=== PATIENT | male | born 1945 | race Caucasian/White ===

== ENCOUNTER → 2016-08-02 | Outpatient (REF) ==
[~2016-08-02] MED LIST: ATIVAN 0.50.5 MG/TAB PO; BUSPAR DIVIDOSE15 MG PO; BUSPAR10 MG PO; CALCIUM CITRAT200 MG; CARAFATE 1GM1 G PO; CIPRO 500MG TA500 MG PO; FERROUS SU325 MG/TAB PO; FLAGYL500 MG PO; FLOMAX 0.40.4 MG/CAP PO; FOSAMAX 70MG TA70 MG; HCTZ 25MG25 MG PO; K-TAB20 PO; LASIX 40MG TABL40 MG PO; LIDODERM PATCH TP; LISINOPRIL/HCTZ1 TA2 PO; LOPRESSOR 550 MG/TAB PO; LORTAB 7.5/5001 TAB PO; LOVASTATIN40 MG PO; MAG-OX 400400 MG/TAB PO; METAMUCIL MUL0.52 GM PO; MIDAMOR 5MG TAB5 MG PO; PHENERGAN 25 TA25 MG PO; PHENERGAN25 MG RC; PREDFORTE5ML OD; PRILOSEC 20MG20 MG PO; PRINIVIL40 MG; PROTONIX 40MG T40 MG PO; TYLENOL 500MG500 MG PO; VASOTEC10 MG PO; ZOCOR 10MG10 MG PO; ZOFRAN ODT4 MG PO; ZOFRAN8 MG PO
[2016-08-02 14:07] LABS: THYROID STIMULATING HORMONE 1.21 uIU/mL (0.465-4.680)
[2016-08-02 14:11] LABS: PSA-TOTAL 0.58 ng/mL (0-4)
== END ==
LOC: ZLAB.WCH 13:00
PROVIDERS: Medical Genetics Clinical Genetics (M.D.)
DX: Z01.89 Encounter for other specified special examinations (principal)
CPT/HCPCS: G0103

== ENCOUNTER 2017-01-12 18:07 | Emergency (ER) | payer MEDICARE, OTHER ==
[~2017-01-12] VITALS: Ht 172.7 cm; Wt 72.7 kg
[~2017-01-12 18:07] MED LIST changes: -ATIVAN 0.50.5 MG/TAB PO; -CIPRO 500MG TA500 MG PO; -FERROUS SU325 MG/TAB PO; -FLAGYL500 MG PO; -FLOMAX 0.40.4 MG/CAP PO; -K-TAB20 PO; -LASIX 40MG TABL40 MG PO; -MAG-OX 400400 MG/TAB PO; -MIDAMOR 5MG TAB5 MG PO; -PREDFORTE5ML OD; -PRINIVIL40 MG; -PROTONIX 40MG T40 MG PO; -TYLENOL 500MG500 MG PO; -ZOFRAN ODT4 MG PO; -ZOFRAN8 MG PO
[2017-01-12 18:12] VITALS: TEMP 98.9
[2017-01-12 19:03] LABS: BASO % 0.3 % (0.0-2.0); EOS % 0.1 % (0-4.0); GRAN # 9.9 (1.4-6.5); GRAN % 89.4 % (42.2-75.2); HEMATOCRIT 47.1 % (42.0-52.0); HEMOGLOBIN 15.7 g/dl (13.5-18.0); LYMPH # 0.4 (1.2-3.4); LYMPH % 3.6 % (20.0-51.0); MEAN CELL VOLUME 90 fl (80.0-100.0); MEAN CORPUSCULAR HEMOGLOBIN 30 pg (27.0-31.0); MEAN CORPUSCULAR HGB CONC 33 g/dl (33.0-37.0); MONO # 0.7 (0.1-0.6); MONO % 6.2 % (1.7-9.3); PLATELET COUNT 169 K/mm3 (130-400); RED BLOOD COUNT 5.24 M/mm3 (4.20-5.60); REDCELL DISTRIBUTION WIDTH-CV 13.2 % (11.5-14.5); WHITE BLOOD COUNT 11.1 K/mm3 (4.8-10.8)
[2017-01-12 19:15] LABS: ALBUMIN 4.2 gm/dL (3.5-5.0); BILIRUBIN,TOTAL 0.8 mg/dL (0.0-1.0); C-REACTIVE PROTEIN 1.5 mg/dL (0.0-0.9); CALCIUM 9.2 mg/dL (8.4-10.2); CREATININE, serum 0.88 mg/dL (0.66-1.25); POTASSIUM 3.9 mmol/L (3.4-5.0); TOTAL PROTEIN 7.6 gm/dL (6.4-8.2)
[2017-01-12] MEDS ORDERED: PRINIVIL40 MG (19:16)
[2017-01-12] MEDS ORDERED: ZOFRAN ODT4 MG PO (20:55)
[2017-01-12] MEDS ORDERED: CIPRO 500MG TA500 MG PO (20:55)
[2017-01-12] MEDS ORDERED: FLAGYL500 MG PO (20:55)
[2017-01-12 21:15] VITALS: BP 127/84; PULSE 80
[2017-01-13] MEDS ORDERED: TYLENOL 500MG500 MG PO (07:48)
[2017-01-13] MEDS ORDERED: ATIVAN 0.50.5 MG/TAB PO (07:48)
== END 2017-01-12 21:26 | disposition home or self-care (01) ==
LOC: COL.ER 18:07
PROVIDERS: Emergency Medicine
DX: K52.9 Noninfective gastroenteritis and colitis, unspecified (principal); I10 Essential (primary) hypertension
CPT/HCPCS: J1885; J2060; J7030; Q9967

== ENCOUNTER 2017-01-13 04:57 | Inpatient (IN) | payer MEDICARE, OTHER ==
[~2017-01-13] VITALS: Ht 172.7 cm; Wt 82.1 kg
[~2017-01-13 04:57] MED LIST changes: +CIPRO 500MG TA500 MG PO; +FLAGYL500 MG PO; +PRINIVIL40 MG; +ZOFRAN ODT4 MG PO
[2017-01-13 05:43] LABS: BASO % 0.3 % (0.0-2.0); GRAN # 11.9 (1.4-6.5); GRAN % 86.4 % (42.2-75.2); HEMATOCRIT 47.9 % (42.0-52.0); LYMPH # 0.7 (1.2-3.4); LYMPH % 4.9 % (20.0-51.0); MEAN CELL VOLUME 89 fl (80.0-100.0); MEAN CORPUSCULAR HEMOGLOBIN 30 pg (27.0-31.0); MEAN CORPUSCULAR HGB CONC 33 g/dl (33.0-37.0); MEAN PLATELET VOLUME 9.1 fl (7.4-10.4); MONO # 1.1 (0.1-0.6); MONO % 7.9 % (1.7-9.3); PLATELET COUNT 154 K/mm3 (130-400); RED BLOOD COUNT 5.38 M/mm3 (4.20-5.60); REDCELL DISTRIBUTION WIDTH-CV 13.3 % (11.5-14.5); WHITE BLOOD COUNT 13.8 K/mm3 (4.8-10.8)
[2017-01-13 05:48] LABS: INR 1.1 (0.8-3.0); PROTHROMBIN TIME 11.8 SECONDS (9.7-12.8)
[2017-01-13 05:51] LABS: PARTIAL THROMBOPLASTIN TIME 27.7 SECONDS (26.0-37.0)
[2017-01-13 05:53] LABS: ADJUSTED CALCIUM 8.6 mg/dL (8.4-10.2); BILIRUBIN,TOTAL 0.9 mg/dL (0.0-1.0); CALCIUM 8.6 mg/dL (8.4-10.2); CREATININE, serum 0.76 mg/dL (0.66-1.25); MAGNESIUM 1.9 mg/dL (1.6-2.3); POTASSIUM 3.6 mmol/L (3.4-5.0); TOTAL PROTEIN 7.2 gm/dL (6.4-8.2)
[2017-01-13] MEDS ORDERED: ATIVAN 0.50.5 MG/TAB PO (07:48)
[2017-01-13] MEDS ORDERED: TYLENOL 500MG500 MG PO (07:48)
[2017-01-13 09:57] VITALS: BP 164/82; PULSE 75; TEMP 97.4
[2017-01-13 11:33] VITALS: BP 134/74; PULSE 76; TEMP 98
[2017-01-13 15:53] VITALS: BP 176/93; PULSE 103; TEMP 97.7
[2017-01-13 17:19] LABS: HEMATOCRIT 50.5 % (42.0-52.0); HEMOGLOBIN 16.9 g/dl (13.5-18.0)
[2017-01-13 19:43] VITALS: BP 163/94; PULSE 98; TEMP 98.1
[2017-01-13 22:59] LABS: HEMATOCRIT 49.5 % (42.0-52.0); HEMOGLOBIN 16.8 g/dl (13.5-18.0)
[2017-01-13 23:41] VITALS: BP 138/77; PULSE 97; TEMP 97.8
[2017-01-14 03:22] VITALS: BP 108/62; PULSE 99; TEMP 98.1
[2017-01-14 06:54] LABS: HEMATOCRIT 48.2 % (42.0-52.0); MEAN CELL VOLUME 89 fl (80.0-100.0); MEAN CORPUSCULAR HEMOGLOBIN 30 pg (27.0-31.0); MEAN CORPUSCULAR HGB CONC 33 g/dl (33.0-37.0); MEAN PLATELET VOLUME 9.3 fl (7.4-10.4); PLATELET COUNT 164 K/mm3 (130-400); REDCELL DISTRIBUTION WIDTH-CV 13.7 % (11.5-14.5); WHITE BLOOD COUNT 15.8 K/mm3 (4.8-10.8)
[2017-01-14 06:56] LABS: ADD PATHOLOGY DIFF REVIEW NO
[2017-01-14 06:58] LABS: CALCIUM 7.6 mg/dL (8.4-10.2); CREATININE, serum 0.83 mg/dL (0.66-1.25); POTASSIUM 3.9 mmol/L (3.4-5.0)
[2017-01-14 07:24] VITALS: BP 140/77; PULSE 88; TEMP 97.5
[2017-01-14 07:35] LABS: BAND 18 % (0-10); MYELOCYTE 2 % (0-0); NEUTROPHILS 74 % (42.0-75.2); PLATELET ESTIMATE NORMAL (NORMAL); TOTAL CELLS COUNTED 100
[2017-01-14 11:31] VITALS: BP 126/75; PULSE 81; TEMP 97.5
[2017-01-14 15:50] VITALS: BP 131/66; PULSE 54; TEMP 98
[2017-01-14 19:50] VITALS: BP 127/64; PULSE 95; TEMP 97.3
[2017-01-15] VITALS (7 sets, daily range): BP systolic 124–153; BP diastolic 64–80; PULSE 61–107; TEMP 97.5–99
[2017-01-15 10:09] LABS: HEMATOCRIT 42.4 % (42.0-52.0); MEAN CELL VOLUME 92 fl (80.0-100.0); MEAN CORPUSCULAR HEMOGLOBIN 30 pg (27.0-31.0); MEAN CORPUSCULAR HGB CONC 33 g/dl (33.0-37.0); MEAN PLATELET VOLUME 9.1 fl (7.4-10.4); PLATELET COUNT 153 K/mm3 (130-400); RED BLOOD COUNT 4.63 M/mm3 (4.20-5.60); REDCELL DISTRIBUTION WIDTH-CV 14.4 % (11.5-14.5); WHITE BLOOD COUNT 15.5 K/mm3 (4.8-10.8)
[2017-01-15 10:10] LABS: HEMOGLOBIN 13.9 g/dl (13.5-18.0)
[2017-01-15 10:11] LABS: ADD PATHOLOGY DIFF REVIEW NO
[2017-01-15 10:46] LABS: BAND 16 % (0-10); METAMYELOCYTE 4 % (0-0); MYELOCYTE 2 % (0-0); NEUTROPHILS 70 % (42.0-75.2); PLATELET ESTIMATE NORMAL (NORMAL); TOTAL CELLS COUNTED 100
[2017-01-15 17:38] LABS: ADJUSTED CALCIUM 8.8 mg/dL (8.4-10.2); ALBUMIN 3.1 gm/dL (3.5-5.0); BILIRUBIN,TOTAL 0.7 mg/dL (0.0-1.0); CALCIUM 8.1 mg/dL (8.4-10.2); CREATININE, serum 0.96 mg/dL (0.66-1.25); POTASSIUM 3.8 mmol/L (3.4-5.0); TOTAL PROTEIN 5.9 gm/dL (6.4-8.2)
[2017-01-16 03:26] VITALS: BP 142/73; PULSE 101; TEMP 98.2
[2017-01-16 07:48] VITALS: BP 153/69; PULSE 99; TEMP 97.9
[2017-01-16 11:45] VITALS: BP 152/80; PULSE 96
[2017-01-16 12:20] LABS: HEMOGLOBIN 13.5 g/dl (13.5-18.0); MEAN CELL VOLUME 92 fl (80.0-100.0); MEAN CORPUSCULAR HEMOGLOBIN 30 pg (27.0-31.0); MEAN CORPUSCULAR HGB CONC 33 g/dl (33.0-37.0); MEAN PLATELET VOLUME 9.4 fl (7.4-10.4); PLATELET COUNT 106 K/mm3 (130-400); RED BLOOD COUNT 4.46 M/mm3 (4.20-5.60); REDCELL DISTRIBUTION WIDTH-CV 14.5 % (11.5-14.5); WHITE BLOOD COUNT 15.3 K/mm3 (4.8-10.8)
[2017-01-16 12:37] LABS: ADJUSTED CALCIUM 8.9 mg/dL (8.4-10.2); ALBUMIN 2.6 gm/dL (3.5-5.0); CALCIUM 7.8 mg/dL (8.4-10.2); CREATININE, serum 0.88 mg/dL (0.66-1.25); POTASSIUM 3.7 mmol/L (3.4-5.0); TOTAL PROTEIN 5.2 gm/dL (6.4-8.2)
[2017-01-16 16:01] VITALS: BP 164/86; PULSE 92; TEMP 99.3
[2017-01-16 19:52] VITALS: BP 149/81; PULSE 97; TEMP 97.8
[2017-01-16 23:10] VITALS: BP 143/77; PULSE 101; TEMP 99.1
[2017-01-17 02:50] VITALS: BP 148/80; PULSE 96; TEMP 98.9
[2017-01-17 07:29] LABS: HEMATOCRIT 42.4 % (42.0-52.0); MEAN CELL VOLUME 91 fl (80.0-100.0); MEAN CORPUSCULAR HEMOGLOBIN 30 pg (27.0-31.0); MEAN CORPUSCULAR HGB CONC 33 g/dl (33.0-37.0); MEAN PLATELET VOLUME 9.8 fl (7.4-10.4); PLATELET COUNT 58 K/mm3 (130-400); RED BLOOD COUNT 4.67 M/mm3 (4.20-5.60); REDCELL DISTRIBUTION WIDTH-CV 14.6 % (11.5-14.5); WHITE BLOOD COUNT 15.1 K/mm3 (4.8-10.8)
[2017-01-17 07:36] LABS: ALBUMIN 2.5 gm/dL (3.5-5.0); BILIRUBIN,TOTAL 1.6 mg/dL (0.0-1.0); CALCIUM 7.8 mg/dL (8.4-10.2); CREATININE, serum 0.87 mg/dL (0.66-1.25); POTASSIUM 3.7 mmol/L (3.4-5.0); TOTAL PROTEIN 5.3 gm/dL (6.4-8.2)
[2017-01-17 08:51] VITALS: BP 167/87; PULSE 98; TEMP 96.8
[2017-01-17 11:01] VITALS: BP 147/88; PULSE 96; TEMP 97.8
[2017-01-17 12:30] LABS: HEMATOCRIT 41.9 % (42.0-52.0); HEMOGLOBIN 13.7 g/dl (13.5-18.0); MEAN CELL VOLUME 91 fl (80.0-100.0); MEAN CORPUSCULAR HEMOGLOBIN 30 pg (27.0-31.0); MEAN CORPUSCULAR HGB CONC 33 g/dl (33.0-37.0); MEAN PLATELET VOLUME 10.5 fl (7.4-10.4); PLATELET COUNT 52 K/mm3 (130-400); RED BLOOD COUNT 4.61 M/mm3 (4.20-5.60); REDCELL DISTRIBUTION WIDTH-CV 14.7 % (11.5-14.5); WHITE BLOOD COUNT 15.6 K/mm3 (4.8-10.8)
[2017-01-17 12:42] LABS: ADD PATHOLOGY DIFF REVIEW NO
[2017-01-17 13:34] LABS: BAND 15 % (0-10); EOSINOPHIL 1 % (0-4); NEUTROPHILS 61 % (42.0-75.2); PLATELET ESTIMATE DECREASED (NORMAL); TOTAL CELLS COUNTED 100
[2017-01-17 16:38] VITALS: BP 160/86; PULSE 94
[2017-01-17 19:54] VITALS: BP 161/86; BP 190/86; PULSE 90; TEMP 98.2
[2017-01-17 23:29] VITALS: BP 157/82; PULSE 94; TEMP 97.4
[2017-01-18 03:45] VITALS: BP 153/76; PULSE 88; TEMP 97.4
[2017-01-18 07:01] LABS: HEMATOCRIT 38.6 % (42.0-52.0); HEMOGLOBIN 12.6 g/dl (13.5-18.0); MEAN CELL VOLUME 91 fl (80.0-100.0); MEAN CORPUSCULAR HEMOGLOBIN 30 pg (27.0-31.0); MEAN CORPUSCULAR HGB CONC 33 g/dl (33.0-37.0); MEAN PLATELET VOLUME 11.8 fl (7.4-10.4); RED BLOOD COUNT 4.25 M/mm3 (4.20-5.60); REDCELL DISTRIBUTION WIDTH-CV 14.8 % (11.5-14.5)
[2017-01-18 07:05] LABS: ADD PATHOLOGY DIFF REVIEW NO; PLATELET COUNT 39 K/mm3 (130-400)
[2017-01-18 07:13] LABS: ADJUSTED CALCIUM 9.2 mg/dL (8.4-10.2); ALBUMIN 2.2 gm/dL (3.5-5.0); BILIRUBIN,TOTAL 1.9 mg/dL (0.0-1.0); CALCIUM 7.8 mg/dL (8.4-10.2); CREATININE, serum 1.09 mg/dL (0.66-1.25); POTASSIUM 3.6 mmol/L (3.4-5.0); TOTAL PROTEIN 4.8 gm/dL (6.4-8.2)
[2017-01-18 07:33] LABS: BAND 23 % (0-10); EOSINOPHIL 1 % (0-4); NEUTROPHILS 60 % (42.0-75.2); PLATELET ESTIMATE DECREASED (NORMAL); TOTAL CELLS COUNTED 100
[2017-01-18 07:34] LABS: POLYCHROMASIA 1+
[2017-01-18 08:55] VITALS: BP 180/77; PULSE 87; TEMP 98.6
[2017-01-18 11:44] VITALS: BP 173/74; PULSE 86; TEMP 98.2
[2017-01-18 17:31] VITALS: BP 163/85; PULSE 96; TEMP 97.9
[2017-01-18 19:24] VITALS: BP 173/87; PULSE 94; TEMP 98.1
[2017-01-18 23:52] VITALS: BP 161/84; BP 161/847; PULSE 95; TEMP 97.8
[2017-01-19] VITALS (7 sets, daily range): BP systolic 147–170; BP diastolic 73–93; PULSE 95–109; TEMP 97.4–98.8
[2017-01-19 06:41] LABS: HEMATOCRIT 38.5 % (42.0-52.0); HEMOGLOBIN 12.8 g/dl (13.5-18.0); MEAN CELL VOLUME 89 fl (80.0-100.0); MEAN CORPUSCULAR HEMOGLOBIN 30 pg (27.0-31.0); MEAN CORPUSCULAR HGB CONC 33 g/dl (33.0-37.0); RED BLOOD COUNT 4.31 M/mm3 (4.20-5.60); REDCELL DISTRIBUTION WIDTH-CV 15.2 % (11.5-14.5)
[2017-01-19 06:48] LABS: PLATELET COUNT 28 K/mm3 (130-400)
[2017-01-19 06:52] LABS: ADJUSTED CALCIUM 9.3 mg/dL (8.4-10.2); ALBUMIN 2.4 gm/dL (3.5-5.0); BILIRUBIN,TOTAL 2.5 mg/dL (0.0-1.0); CREATININE, serum 1.33 mg/dL (0.66-1.25); POTASSIUM 3.3 mmol/L (3.4-5.0); TOTAL PROTEIN 5.1 gm/dL (6.4-8.2)
[2017-01-19 07:21] LABS: BAND 24 % (0-10); METAMYELOCYTE 3 % (0-0); MYELOCYTE 3 % (0-0); NEUTROPHILS 65 % (42.0-75.2); TOTAL CELLS COUNTED 100
[2017-01-19 07:22] LABS: BURR CELLS 1+; PLATELET ESTIMATE DECREASED (NORMAL); POLYCHROMASIA 1+
[2017-01-19 07:23] LABS: ANISOCYTOSIS 1+
[2017-01-19 07:26] LABS: ADD PATHOLOGY DIFF REVIEW YES
[2017-01-19 09:44] LABS: PH 5 (5-8); SQUAMOUS EPITHELIAL 0-2 /hpf; URINE APPEARANCE Hazy; URINE BACTERIA None Seen /hpf; URINE BILIRUBIN Negative (NEGATIVE); URINE BLOOD 3+ (NEGATIVE); URINE COLOR Yellow; URINE GLUCOSE Negative (NEGATIVE); URINE KETONE Negative (NEGATIVE); URINE UROBILINOGEN Negative (NEGATIVE)
[2017-01-19 12:20] LABS: ADJUSTED CALCIUM 9.5 mg/dL (8.4-10.2); ALBUMIN 2.3 gm/dL (3.5-5.0); BILIRUBIN,TOTAL 2.4 mg/dL (0.0-1.0); CALCIUM 8.1 mg/dL (8.4-10.2); CREATININE, serum 1.38 mg/dL (0.66-1.25); MAGNESIUM 2.3 mg/dL (1.6-2.3); PHOSPHOROUS 2.5 mg/dL (2.5-4.5); POTASSIUM 3.3 mmol/L (3.4-5.0)
[2017-01-20 08:47] LABS: PATHOLOGY DIFF REVIEW OK
== END 2017-01-20 01:00 | disposition other institution (70) | DRG 372 ==
LOC: COL.ER 04:57 → MEDICAL 06:17
PROVIDERS: Emergency Medicine; Internal Medicine Cardiovascular Disease; Nurse Practitioner Family; Physician Assistant; Surgery
PROC: 02HV33Z Insertion of Infusion Device into Superior Vena Cava, Percutaneous Approach (ICD-10-PCS; principal; 2017-01-19)
DX: A04.3 Enterohemorrhagic Escherichia coli infection (principal); E44.0 Moderate protein-calorie malnutrition; R07.89 Other chest pain; E87.6 Hypokalemia; I10 Essential (primary) hypertension; E77.8 Other disorders of glycoprotein metabolism; Z87.442 Personal history of urinary calculi; Z68.24 Body mass index [BMI] 24.0-24.9, adult
CPT/HCPCS: 99222-AI; 99223-AI; 99233-AI; 99239; B4178; C1751; J0360; J0500; J0610; J1170; J1885; J2060; J2405; J2550; J3475; J3480; J7030; J7131; Q9967

== ENCOUNTER 2017-01-25 11:36 | Inpatient (IN) | payer MEDICARE, OTHER ==
[~2017-01-25] VITALS: Ht 172.7 cm; Wt 78.3 kg
[~2017-01-25 11:36] MED LIST changes: +ATIVAN 0.50.5 MG/TAB PO; +TYLENOL 500MG500 MG PO
[2017-01-25] MEDS ORDERED: PREDFORTE5ML OD (14:47)
[2017-01-25] MEDS ORDERED: LASIX 40MG TABL40 MG PO (14:53)
[2017-01-25] MEDS ORDERED: K-TAB20 PO (14:56)
[2017-01-25 16:45] VITALS: BP 178/79; PULSE 83; TEMP 98.8
[2017-01-25 16:53] VITALS: BP 178/79; PULSE 83; TEMP 98.8
[2017-01-26 05:37] VITALS: BP 158/69; PULSE 82; TEMP 99.2
[2017-01-26 07:20] LABS: BASO % 0.2 % (0.0-2.0); EOS # 0.1 (0.0-0.7); GRAN # 6.6 (1.4-6.5); GRAN % 79.2 % (42.2-75.2); LYMPH # 0.6 (1.2-3.4); LYMPH % 6.8 % (20.0-51.0); MEAN CELL VOLUME 93 fl (80.0-100.0); MEAN CORPUSCULAR HGB CONC 32 g/dl (33.0-37.0); MONO # 0.9 (0.1-0.6); MONO % 11.4 % (1.7-9.3); PLATELET COUNT 263 K/mm3 (130-400); RED BLOOD COUNT 2.66 M/mm3 (4.20-5.60); REDCELL DISTRIBUTION WIDTH-CV 15.6 % (11.5-14.5); WHITE BLOOD COUNT 8.3 K/mm3 (4.8-10.8)
[2017-01-26 07:26] LABS: HEMATOCRIT 24.6 % (42.0-52.0); HEMOGLOBIN 7.9 g/dl (13.5-18.0); MEAN CORPUSCULAR HEMOGLOBIN 30 pg (27.0-31.0)
[2017-01-26 07:42] LABS: CREATININE, serum 1.18 mg/dL (0.66-1.25)
[2017-01-26 07:44] LABS: POTASSIUM 2.8 mmol/L (3.4-5.0)
[2017-01-26 16:29] VITALS: BP 162/80; PULSE 81; TEMP 98.1
[2017-01-27 04:41] VITALS: BP 149/74; PULSE 87; TEMP 98.5
[2017-01-27 15:58] VITALS: BP 176/96; PULSE 67; TEMP 98
[2017-01-27 19:41] VITALS: BP 171/81; PULSE 85
[2017-01-28 04:36] VITALS: BP 142/70; PULSE 78; TEMP 99.1
[2017-01-28 06:30] LABS: ADD PATHOLOGY DIFF REVIEW NO
[2017-01-28 06:36] LABS: MEAN CELL VOLUME 94 fl (80.0-100.0); MEAN CORPUSCULAR HGB CONC 32 g/dl (33.0-37.0); MEAN PLATELET VOLUME 10.8 fl (7.4-10.4); PLATELET COUNT 309 K/mm3 (130-400); RED BLOOD COUNT 2.62 M/mm3 (4.20-5.60); REDCELL DISTRIBUTION WIDTH-CV 15.3 % (11.5-14.5); WHITE BLOOD COUNT 7.4 K/mm3 (4.8-10.8)
[2017-01-28 06:37] LABS: HEMATOCRIT 24.7 % (42.0-52.0); HEMOGLOBIN 7.8 g/dl (13.5-18.0); MEAN CORPUSCULAR HEMOGLOBIN 30 pg (27.0-31.0)
[2017-01-28 06:56] LABS: CALCIUM 7.8 mg/dL (8.4-10.2); CREATININE, serum 1.06 mg/dL (0.66-1.25); MAGNESIUM 1.6 mg/dL (1.6-2.3); POTASSIUM 3.4 mmol/L (3.4-5.0)
[2017-01-28 07:26] LABS: BAND 17 % (0-10); BASOPHIL 1 % (0-2); EOSINOPHIL 1 % (0-4); METAMYELOCYTE 1 % (0-0); MYELOCYTE 3 % (0-0); NEUTROPHILS 64 % (42.0-75.2); PLATELET ESTIMATE NORMAL (NORMAL); TOTAL CELLS COUNTED 100
[2017-01-28 07:29] LABS: HYPOCHROMIA 1+; OVALOCYTES 2+
[2017-01-28 07:30] LABS: ACANTHOCYTES 1+
[2017-01-28 16:23] VITALS: BP 174/80; PULSE 76; TEMP 98.2
[2017-01-29 06:03] VITALS: BP 171/80; PULSE 64; TEMP 98.3
[2017-01-29 08:07] VITALS: BP 154/65; PULSE 84
[2017-01-29 17:01] VITALS: BP 156/75; PULSE 87; TEMP 98.3
[2017-01-30 05:49] VITALS: BP 184/87; PULSE 69; TEMP 98.8
[2017-01-30 08:25] VITALS: BP 161/83
[2017-01-30 18:45] VITALS: BP 173/82; PULSE 71; TEMP 98.7
[2017-01-30 21:30] VITALS: BP 180/80; PULSE 72
[2017-01-31 00:35] VITALS: BP 194/92; PULSE 70
[2017-01-31 04:06] VITALS: BP 180/84; PULSE 74; TEMP 98.5
[2017-01-31 06:35] LABS: HEMOGLOBIN 8.2 g/dl (13.5-18.0)
[2017-01-31 07:08] LABS: CALCIUM 8.2 mg/dL (8.4-10.2); CREATININE, serum 0.96 mg/dL (0.66-1.25); MAGNESIUM 1.7 mg/dL (1.6-2.3)
[2017-01-31 10:17] VITALS: BP 175/87; BP 185/81
[2017-01-31 16:00] VITALS: BP 183/98; PULSE 73; TEMP 98.1
[2017-01-31 21:30] VITALS: BP 175/86; PULSE 79
[2017-02-01 01:45] VITALS: BP 171/90; PULSE 72
[2017-02-01 01:48] VITALS: BP 178/81
[2017-02-01 03:00] VITALS: BP 164/89
[2017-02-01 06:23] VITALS: BP 183/81; PULSE 73; TEMP 99.2
[2017-02-01 06:30] VITALS: BP 185/90
[2017-02-01 17:52] VITALS: BP 164/76; PULSE 87; TEMP 98.2
[2017-02-02 05:48] VITALS: BP 155/87; PULSE 73; TEMP 98.2
[2017-02-02 06:38] LABS: CALCIUM 8.4 mg/dL (8.4-10.2); CREATININE, serum 0.93 mg/dL (0.66-1.25); MAGNESIUM 1.9 mg/dL (1.6-2.3); POTASSIUM 3.4 mmol/L (3.4-5.0)
[2017-02-02 16:52] VITALS: BP 150/72; PULSE 73; TEMP 98.6
[2017-02-03 05:02] VITALS: BP 182/81; PULSE 72; TEMP 98.4
[2017-02-03] MEDS ORDERED: FLOMAX 0.40.4 MG/CAP PO (13:00)
[2017-02-03] MEDS ORDERED: FERROUS SU325 MG/TAB PO (13:00)
[2017-02-03] MEDS ORDERED: ZOFRAN8 MG PO (13:01)
[2017-02-03] MEDS ORDERED: MIDAMOR 5MG TAB5 MG PO (13:01)
[2017-02-03] MEDS ORDERED: MAG-OX 400400 MG/TAB PO (13:01)
[2017-02-03] MEDS ORDERED: PROTONIX 40MG T40 MG PO (13:02)
== END 2017-02-03 16:30 | disposition home or self-care (01) | DRG 372 ==
PROVIDERS: Internal Medicine
DX: A03.0 Shigellosis due to Shigella dysenteriae (principal); E44.0 Moderate protein-calorie malnutrition; I10 Essential (primary) hypertension; E78.5 Hyperlipidemia, unspecified; K21.9 Gastro-esophageal reflux disease without esophagitis; E87.6 Hypokalemia; E83.42 Hypomagnesemia; D64.9 Anemia, unspecified; N28.9 Disorder of kidney and ureter, unspecified; Z68.28 Body mass index [BMI] 28.0-28.9, adult
CPT/HCPCS: 99222-AI; 99232-AI; 99239

== ENCOUNTER 2017-02-04 10:27 | Emergency (ER) | payer MEDICARE, OTHER ==
[~2017-02-04] VITALS: Ht 172.7 cm; Wt 73.6 kg
[~2017-02-04 10:27] MED LIST changes: +FERROUS SU325 MG/TAB PO; +FLOMAX 0.40.4 MG/CAP PO; +K-TAB20 PO; +LASIX 40MG TABL40 MG PO; +MAG-OX 400400 MG/TAB PO; +MIDAMOR 5MG TAB5 MG PO; +PREDFORTE5ML OD; +PROTONIX 40MG T40 MG PO; +ZOFRAN8 MG PO
[2017-02-04 10:38] VITALS: BP 152/70; TEMP 98.2
[2017-02-04 12:31] LABS: BASO % 0.6 % (0.0-2.0); EOS # 0.1 (0.0-0.7); EOS % 1.4 % (0-4.0); GRAN # 5.5 (1.4-6.5); GRAN % 78.2 % (42.2-75.2); LYMPH # 0.7 (1.2-3.4); LYMPH % 9.2 % (20.0-51.0); MEAN CELL VOLUME 97 fl (80.0-100.0); MEAN CORPUSCULAR HGB CONC 31 g/dl (33.0-37.0); MEAN PLATELET VOLUME 9.6 fl (7.4-10.4); MONO # 0.6 (0.1-0.6); MONO % 8.9 % (1.7-9.3); PLATELET COUNT 250 K/mm3 (130-400); RED BLOOD COUNT 3.15 M/mm3 (4.20-5.60); REDCELL DISTRIBUTION WIDTH-CV 15.9 % (11.5-14.5)
[2017-02-04 12:35] LABS: HEMATOCRIT 30.5 % (42.0-52.0); HEMOGLOBIN 9.4 g/dl (13.5-18.0); MEAN CORPUSCULAR HEMOGLOBIN 30 pg (27.0-31.0)
[2017-02-04 12:36] LABS: INR 1.1 (0.8-3.0); PROTHROMBIN TIME 12.4 SECONDS (9.7-12.8)
[2017-02-04 12:39] LABS: PARTIAL THROMBOPLASTIN TIME 28.9 SECONDS (26.0-37.0)
[2017-02-04 12:45] LABS: ADJUSTED CALCIUM 9.5 mg/dL (8.4-10.2); ALANINE AMINOTRANSFERASE 43 U/L (21-72); ALBUMIN 3.3 gm/dL (3.5-5.0); ALKALINE PHOSPHATASE 87 U/L (50-136); ANION GAP 10 mmol/L (7-16); BILIRUBIN,TOTAL 0.8 mg/dL (0.0-1.0); BLOOD UREA NITROGEN 11 mg/dL (9-20); CALCIUM 8.9 mg/dL (8.4-10.2); CARBON DIOXIDE 28 mmol/L (22-30); CHLORIDE 96 mmol/L (98-107); CREATININE, serum 0.91 mg/dL (0.66-1.25); GLUCOSE 94 mg/dL (74-106); LIPASE 321 U/L (23-300); POTASSIUM 3.9 mmol/L (3.4-5.0); SODIUM 134 mmol/L (137-145); TOTAL PROTEIN 6.4 gm/dL (6.4-8.2)
[2017-02-04 12:47] LABS: C-REACTIVE PROTEIN < 0.5 mg/dL (0.0-0.9)
[2017-02-04 13:30] LABS: ERYTHROCYTE SEDIMENTATION RATE 19 mm/hr (0-30)
[2017-02-04 16:01] VITALS: PULSE 82
== END 2017-02-04 15:34 | disposition home or self-care (01) ==
LOC: COL.ER 10:27
PROVIDERS: Emergency Medicine
DX: R21 Rash and other nonspecific skin eruption (principal)

== ENCOUNTER 2017-03-09 13:15 | Outpatient (RCR) | payer MEDICARE, OTHER | END 2017-03-10 15:09 | LOC: WSPT 13:15 | DX: R29.898 Other symptoms and signs involving the musculoskeletal system (principal); A41.51 Sepsis due to Escherichia coli [E. coli]; B96.23 Unspecified Shiga toxin-producing Escherichia coli [E. coli] [STEC] as the cause of diseases classified elsewhere; I10 Essential (primary) hypertension | CPT/HCPCS: G8978-GP; G8979-GP; G8980-GP ==

== ENCOUNTER → 2017-09-15 | Outpatient (REF) | LOC: ZLAB.WCH 16:18 | DX: Z01.89 Encounter for other specified special examinations (principal) | CPT/HCPCS: G0103 ==

== ENCOUNTER → 2018-09-19 | Outpatient (REF) | LOC: ZLAB.WCH 16:01 | DX: Z01.89 Encounter for other specified special examinations (principal) | CPT/HCPCS: G0103 ==

== ENCOUNTER 2018-11-10 09:55 | Day surgery (SDC) | payer MEDICARE, OTHER ==
[~2018-11-10] VITALS: Ht 172.7 cm; Wt 75.0 kg
[~2018-11-10 09:55] MED LIST changes: +ASPERCREME1 EACH TP; -K-TAB20 PO; -LIDODERM PATCH TP; +UROCIT-K 5540 MG/TAB PO; -ZOCOR 10MG10 MG PO; +ZOCOR 20MG20 MG PO
[2018-11-10] MEDS ORDERED: MIDAMOR 5MG TAB5 MG PO (10:15)
[2018-11-10] MEDS ORDERED: PRINIVIL40 MG PO (10:20)
[2018-11-10] MEDS ORDERED: FLOMAX 0.40.4 MG/CAP PO (10:20)
[2018-11-10] MEDS ORDERED: NORVASC 5MG5 MG/TAB PO (10:20)
[2018-11-10] MEDS ORDERED: LUTEIN20 M1 PO (10:21)
[2018-11-10] MEDS ORDERED: FIBER0.52 GM PO (10:21)
[2018-11-10] MEDS ORDERED: VITAMIN D 1001000 IU PO (10:22)
[2018-11-10 10:57] VITALS: BP 138/74; PULSE 68; TEMP 97.7
[2018-11-10 12:15] VITALS: BP 122/71; PULSE 81; TEMP 97.8
--- NOTE | 2018-11-10 12:15 | NUR ---
Pt arrived to room from Endo procedure by stretcher. Pt A/Ox3. Pt walked to chair x1 assist. Steady gait. Pt's in room. Pt denies any nausea or pain. Request water and ice cream. Report received from BLANCA Munoz.
[2018-11-10 12:30] VITALS: BP 123/76; PULSE 76
--- NOTE | 2018-11-10 12:36 | NUR ---
Pt tolerating food and water. Denies any nausea. Pt resting in chair. in room.
[2018-11-10 12:45] VITALS: BP 123/74; PULSE 67
--- NOTE | 2018-11-10 13:08 | NUR ---
Discussed discharge instructions, med list and procedure information with pt and pt's . Answered all questions to pt's satisfaction. Pt signed discharge paperwork.
--- NOTE | 2018-11-10 13:17 | NUR ---
Pt discharged from [facility] [address]. Pt left unit via wheelchair to private vehicle driven by .
== END 2018-11-10 13:17 | disposition home or self-care (01) ==
LOC: SDCO 09:55
DX: Z12.11 Encounter for screening for malignant neoplasm of colon (principal); K57.30 Diverticulosis of large intestine without perforation or abscess without bleeding; K21.0 Gastro-esophageal reflux disease with esophagitis; Z80.0 Family history of malignant neoplasm of digestive organs; K22.2 Esophageal obstruction; Z88.0 Allergy status to penicillin; Z88.6 Allergy status to analgesic agent
CPT/HCPCS: 43239; 43248; G0105; C1726; J2250; J3010; J7030

== ENCOUNTER 2019-05-09 11:00 | Outpatient (RCR) | payer MEDICARE, OTHER ==
[~2019-05-09 11:00] MED LIST changes: +FIBER0.52 GM PO; +LUTEIN20 M1 PO; +NORVASC 5MG5 MG/TAB PO; +PRINIVIL40 MG PO; +VITAMIN D 1001000 IU PO
== END 2019-05-09 11:55 | disposition home or self-care (01) ==
LOC: MKS.ESL.PT 11:00
DX: M51.36 Other intervertebral disc degeneration, lumbar region (principal); R53.1 Weakness
CPT/HCPCS: G0283-GP

== ENCOUNTER 2020-06-11 11:15 | Outpatient (RCR) | payer MEDICARE, OTHER | END 2020-06-16 | disposition home or self-care (01) | LOC: WSC | DX: M54.6 Pain in thoracic spine (principal) ==

== ENCOUNTER 2020-06-26 14:45 | Outpatient (RCR) | payer MEDICARE, OTHER | END 2020-06-30 15:32 | disposition home or self-care (01) | LOC: WSC 14:45 | DX: M54.6 Pain in thoracic spine (principal) ==

== ENCOUNTER → 2020-08-28 | Outpatient (CLI) | payer MEDICARE, OTHER | LOC: COL.RAD 10:03 | DX: S92.341D Displaced fracture of fourth metatarsal bone, right foot, subsequent encounter for fracture with routine healing (principal); M51.36 Other intervertebral disc degeneration, lumbar region ==

== ENCOUNTER 2020-09-02 09:15 | Outpatient (RCR) | payer MEDICARE, OTHER | END 2020-11-18 | disposition still patient (30) | LOC: WSC | DX: M51.36 Other intervertebral disc degeneration, lumbar region (principal); M79.671 Pain in right foot ==

== ENCOUNTER 2021-08-05 10:30 | Outpatient (RCR) | payer MEDICARE, OTHER | END 2021-08-10 | disposition home or self-care (01) | LOC: WSPT | DX: M16.12 Unilateral primary osteoarthritis, left hip (principal) ==

== ENCOUNTER → 2021-08-10 | Outpatient (CLI) | payer MEDICARE, OTHER | LOC: COL.RAD 12:07 | DX: M47.816 Spondylosis without myelopathy or radiculopathy, lumbar region (principal); S92.301D Fracture of unspecified metatarsal bone(s), right foot, subsequent encounter for fracture with routine healing ==

== ENCOUNTER 2021-08-12 10:13 | Outpatient (RCR) | payer MEDICARE, OTHER | END 2021-09-10 | LOC: WSPT | DX: M16.12 Unilateral primary osteoarthritis, left hip (principal) ==

== ENCOUNTER 2021-10-14 09:31 | Outpatient (RCR) | payer MEDICARE, OTHER | END 2021-11-10 | disposition home or self-care (01) | LOC: WSPT | DX: Z01.818 Encounter for other preprocedural examination (principal) ==

== ENCOUNTER → 2021-11-10 | Outpatient (RCR) | payer MEDICARE, OTHER | END | disposition home or self-care (01) | LOC: WSPT | DX: M16.12 Unilateral primary osteoarthritis, left hip (principal) ==

== ENCOUNTER 2021-12-08 11:15 | Outpatient (RCR) | payer MEDICARE, OTHER | END 2021-12-10 | disposition still patient (30) | LOC: WSPT | DX: M16.12 Unilateral primary osteoarthritis, left hip (principal) ==

== ENCOUNTER 2021-12-11 09:20 | Outpatient (RCR) | payer MEDICARE, OTHER | END 2022-01-10 | disposition home or self-care (01) | LOC: WSPT | DX: M16.12 Unilateral primary osteoarthritis, left hip (principal) ==

== ENCOUNTER 2022-03-11 10:30 | Outpatient (RCR) | payer MEDICARE, OTHER | END 2022-03-12 | disposition home or self-care (01) | LOC: WSPT | DX: Z98.1 Arthrodesis status (principal) ==

== ENCOUNTER 2022-04-08 10:30 | Outpatient (RCR) | payer MEDICARE, OTHER | END 2022-04-12 | disposition home or self-care (01) | LOC: WSPT | DX: S92.321D Displaced fracture of second metatarsal bone, right foot, subsequent encounter for fracture with routine healing (principal); S92.331D Displaced fracture of third metatarsal bone, right foot, subsequent encounter for fracture with routine healing; Z98.1 Arthrodesis status; X58.XXXD Exposure to other specified factors, subsequent encounter ==

== ENCOUNTER 2022-04-15 10:30 | Outpatient (RCR) | payer MEDICARE, OTHER | END 2022-04-15 15:00 | disposition home or self-care (01) | LOC: WSPT 10:30 | DX: S92.321D Displaced fracture of second metatarsal bone, right foot, subsequent encounter for fracture with routine healing (principal); S92.331D Displaced fracture of third metatarsal bone, right foot, subsequent encounter for fracture with routine healing; X58.XXXD Exposure to other specified factors, subsequent encounter ==